=== PATIENT | female | born 1945 | race Caucasian/White ===

== ENCOUNTER 2021-10-18 07:15 | Day surgery (SDC) | payer MEDICARE, MEDICAID, SELFPAY ==
[2021-09-29 14:08] VITALS: BMI 24.7
--- NOTE | 2021-10-14 08:38 | MHC.SHP ---
Pre-Procedural Eval Section A Date of Service: 10/14/21 The patient is an INPATIENT: No Changes since office visit: No Cold of Flu in the past 2 weeks, No New Medical Problems, No Changes in Medication and No Patient answered all questions The History & Physical has been completed within 30 days and I have reviewed it.: Yes Section B Chief Complaint: Cataract Left Eye Allergies: Allergies Allergy/AdvReac Type Severity Reaction Status Date / Time asmanex twist haler Allergy Unknown Hives Uncoded 09/29/21 14:04 erythromycin Allergy Unknown Unknown Uncoded 09/29/21 14:04 prednisone Allergy Unknown Unknown Uncoded 09/29/21 14:04 Plan Diagnosis/Plan: Unchanged I have reviewed the history and physical and performed a pertinent physical examination on my patient. No changes have occurred unless specified.
--- NOTE | 2021-10-15 09:34 | HO.ANESPROP2 ---
Documented by User: Daly Leon NP 10/15/21 09:38 HPI - Anesthesia Eval Consult details Narrative: 76yo F for Left Cataract Extraction IOL Insertion PCP cleared No previous cataract on record Eliquis for afib PMFSH Past Medical History Medical History Anxiety Asthma Atrial fibrillation Autistic behavior Cataract History of asthma History of skin cancer Hypothyroidism Low back pain Osteoarthritis Surgical History Surgical History History of thyroid surgery Social History Social History (Updated 09/29/21 @ 14:06 by Lourdes Millan RN) Are you a primary congregational care pastor to a significant other at home: No Do you presently have visiting nurse or other home services: Yes (live-in 17/04 caregiver) Alcohol intake: never Patient Tobacco Use Status: Never used Tobacco Use of substances other than those prescribed or required for medical reasons: No Are you DNR?: No Advance Directives: No Advance Directives Information Provided: No Advance Directives on File: No Recently lost weight without trying: Yes How much weight loss: 2-13 pounds Eating poorly because of decreased appetite: Yes Nutrition screen score: 4 Meds Allergies Allergy/AdvReac Type Severity Reaction Status Date / Time asmanex twist haler Allergy Unknown Hives Uncoded 10/18/21 07:49 erythromycin Allergy Unknown Unknown Uncoded 10/18/21 07:49 prednisone Allergy Unknown Unknown Uncoded 10/18/21 07:49 Home Medications Medication Instructions Recorded Confirmed Last Taken Type Vitamin B-12 1,000 mcg PO DAILY 09/28/21 09/29/21 Unknown History albuterol sulfate 90 mcg/actuation 2 puff INHALATION Q4-6H PRN 09/28/21 09/29/21 Unknown History aerosol inhaler (Ventolin HFA) apixaban 5 mg tablet (Eliquis) 1 tab PO BID 09/28/21 09/28/21 10/18/21 06:30 History budesonide-formoterol HFA 160 2 puff INHALATION BID 09/28/21 09/29/21 Unknown History mcg-4.5 mcg/actuation aerosol inhaler cholecalciferol (vitamin D3) 25 1 cap PO DAILY 09/28/21 09/28/21 Unknown History mcg (1,000 unit) capsule (Vitamin D3) diltiazem HCl 360 mg 1 cap PO DAILY 09/28/21 09/28/21 10/18/21 06:30 History capsule,extended release 24 hr levothyroxine 125 mcg tablet 1 tab PO DAILY 09/28/21 09/28/21 10/18/21 06:30 History multivitamin 1 tab PO DAILY 09/28/21 09/28/21 Unknown History Exam Exam Date and Time: October 15, 2021 0934 Height,Weight and Vital Signs: Height 5 ft 4 in Weight 65.317 kg Assessment and Plan Assessment Anesthesia Assessment: Chart Reviewed Documented by User: Prince Hurt MD 10/18/21 08:06 [facility] Past Medical History Medical History Anxiety Asthma Atrial fibrillation Autistic behavior Cataract History of asthma History of skin cancer Hypothyroidism Low back pain Osteoarthritis Family History Family history of problems with anesthesia: No Surgical History Surgical History History of thyroid surgery History of Problems with Anesthesia: No Social History Social History (Updated 09/29/21 @ 14:06 by Lourdes Millan RN) Are you a primary congregational care pastor to a significant other at home: No Do you presently have visiting nurse or other home services: Yes (live-in 17/04 caregiver) Alcohol intake: never Patient Tobacco Use Status: Never used Tobacco Use of substances other than those prescribed or required for medical reasons: No Are you DNR?: No Advance Directives: No Advance Directives Information Provided: No Advance Directives on File: No Recently lost weight without trying: Yes How much weight loss: 2-13 pounds Eating poorly because of decreased appetite: Yes Nutrition screen score: 4 Meds Allergies Allergy/AdvReac Type Severity Reaction Status Date / Time asmanex twist haler Allergy Unknown Hives Uncoded 10/18/21 07:49 erythromycin Allergy Unknown Unknown Uncoded 10/18/21 07:49 prednisone Allergy Unknown Unknown Uncoded 10/18/21 07:49 Home Medications Medication Instructions Recorded Confirmed Last Taken Type Vitamin B-12 1,000 mcg PO DAILY 09/28/21 09/29/21 Unknown History albuterol sulfate 90 mcg/actuation 2 puff INHALATION Q4-6H PRN 09/28/21 09/29/21 Unknown History aerosol inhaler (Ventolin HFA) apixaban 5 mg tablet (Eliquis) 1 tab PO BID 09/28/21 09/28/21 10/18/21 06:30 History budesonide-formoterol HFA 160 2 puff INHALATION BID 09/28/21 09/29/21 Unknown History mcg-4.5 mcg/actuation aerosol inhaler cholecalciferol (vitamin D3) 25 1 cap PO DAILY 09/28/21 09/28/21 Unknown History mcg (1,000 unit) capsule (Vitamin D3) diltiazem HCl 360 mg 1 cap PO DAILY 09/28/21 09/28/21 10/18/21 06:30 History capsule,extended release 24 hr levothyroxine 125 mcg tablet 1 tab PO DAILY 09/28/21 09/28/21 10/18/21 06:30 History multivitamin 1 tab PO DAILY 09/28/21 09/28/21 Unknown History Exam Airway Mallampati Class: II TM Dist: >3cm Neck ROM: Full Loose/Missing/Broken Teeth: No Heart: irreg irreg s1s2 Lungs: CTA b/l Assessment and Plan Assessment Anesthesia Assessment: Anesthesia Plan Discussed Final Anesthetic Review Family History of Problems with Anesthesia: No History of Problems with Anesthesia: No NPO: Yes ASA Class: III Final Preanesthetic Review: No Changes in Pt Med Stat, Meds/Allgs Chart Reviewed, Consent Obtained/Reviewed and Anes Risks/Benef Reviewed Patient Risk: Intermediate Procedure Risk: Low Assessment/Block/Sedation in SS: Assess/Block/Sedation-SS Anesthetic Plan Anesthetic Plan: MAC: and Agree w/ Assess. and Plan Disposition: Standard PACU
[2021-10-18 07:52] VITALS: BP 164/74; PULSE 95; RESP 18; TEMP 37.2; O2SAT 97
[2021-10-18] MEDS: Tetracaine HCl/PF 0.5% Oph Sol 4 ML DROPS 1 DROP EYE-LEFT (08:09)
[2021-10-18] MEDS: Lactated Ringers 500 ML 50 ML IV (08:11)
[2021-10-18] MEDS: Tropicamide 1 % Ophth Sol 3 ML BTL 1 DROP EYE-LEFT ×3 (08:13→08:23)
[2021-10-18] MEDS: Phenylephrine HCL 2.5% Oph SoL 2 ML BOTTLE 1 DROP EYE-LEFT ×3 (08:16→08:26)
--- NOTE | 2021-10-18 08:50 | HO.PNOPHT ---
Ophthalmology Procedure Procedure Date of Service: 10/18/21 Ophthalmology Viscoelastic: Healjoss Gilt Dual Pack Pro Ophthalmology Lenses: TECNIS [id number] (22.5) Procedure Notes: PREOPERATIVE DIAGNOSIS: Decreased visual acuity left eye secondary to cataract POSTOPERATIVE DIAGNOSIS: Same PROCEDURE: Left cataract extraction with intraocular lens insertion SURGEON: Ganesh Sesay M.D. ANESTHESIA: Topical/MAC ESTIMATED BLOOD LOSS: None COMPLICATIONS: None After obtaining informed consent, the patient was brought to the operation room suite and placed in the supine position. After adequate sedation per anesthesia, topical drops of Tetracaine were given to the left eye. The eye was then prepped and draped in the usual sterile fashion. The operating room microscope was then positioned over the operative eye and a lid speculum placed. A paracentesis was created. Viscoelastic was then instilled into the anterior chamber. A three plane incision was then created temporally, utilizing a 2.85 mm keratome. Capsulotomy forceps were then utilized to create a circular tear capsulotomy. Hydrodissection and hydrodelineation were carried out until adequate mobilization of the nucleus occurred. Phacoemulsification was then utilized to remove the dense central nucleus followed by removal of the cortical material utilizing the automated aspiration irrigation unit. Viscoat elastic was instilled into the posterior capsular bag followed by placement of a posterior chamber intraocular lens without difficulty. The residual Viscoat elastic was then removed utilizing the automated IA machine. The wound was check and found to be watertight. The patient tolerated the procedure well and the lid speculum was removed. Intracameral injection of Vigamox 0.1 mL followed by a subtenon injection of Kenalog-40 0.2 mL were administered. The patient will be seen in the a.m.
[2021-10-18 09:10] VITALS: BP 133/62; PULSE 69; RESP 16; TEMP 37.3; O2SAT 97
== END 2021-10-18 09:20 | disposition home or self-care (01) ==
PROVIDERS: PCP Internal Medicine; Visit Provider Ophthalmology
PROC: (CPT 66985; principal; 2021-10-18 09:40)
DX: H25.12 Age-related nuclear cataract, left eye (principal); H52.4 Presbyopia; E03.9 Hypothyroidism, unspecified; I10 Essential (primary) hypertension; F41.1 Generalized anxiety disorder; F84.0 Autistic disorder; J45.909 Unspecified asthma, uncomplicated; I48.91 Unspecified atrial fibrillation; Z79.01 Long term (current) use of anticoagulants; Z79.899 Other long term (current) drug therapy; Z88.1 Allergy status to other antibiotic agents; Z88.8 Allergy status to other drugs, medicaments and biological substances
CPT/HCPCS: 66984; J2250; J3300; V2632

== ENCOUNTER 2021-10-25 08:17 | Day surgery (SDC) | payer MEDICARE, MEDICAID, SELFPAY ==
[2021-09-28 10:04] VITALS: BMI 24.7
--- NOTE | 2021-09-30 10:52 | MHC.SHP ---
Pre-Procedural Eval Section A Date of Service: 09/30/21 The patient is an INPATIENT: No Changes since office visit: No Cold of Flu in the past 2 weeks, No New Medical Problems, No Changes in Medication and No Patient answered all questions The History & Physical has been completed within 30 days and I have reviewed it.: Yes Section B Chief Complaint: Cataract Right Eye Allergies: Allergies Allergy/AdvReac Type Severity Reaction Status Date / Time asmanex twist haler Allergy Unknown Hives Uncoded 09/29/21 14:04 erythromycin Allergy Unknown Unknown Uncoded 09/29/21 14:04 prednisone Allergy Unknown Unknown Uncoded 09/29/21 14:04 Plan Diagnosis/Plan: Unchanged I have reviewed the history and physical and performed a pertinent physical examination on my patient. No changes have occurred unless specified.
--- NOTE | 2021-10-21 08:41 | MHC.SHP ---
Pre-Procedural Eval Section A Date of Service: 10/21/21 The patient is an INPATIENT: No Changes since office visit: No Cold of Flu in the past 2 weeks, No New Medical Problems, No Changes in Medication and No Patient answered all questions The History & Physical has been completed within 30 days and I have reviewed it.: Yes Section B Chief Complaint: Cataract Right Eye Allergies: Allergies Allergy/AdvReac Type Severity Reaction Status Date / Time asmanex twist haler Allergy Unknown Hives Uncoded 10/18/21 07:49 erythromycin Allergy Unknown Unknown Uncoded 10/18/21 07:49 prednisone Allergy Unknown Unknown Uncoded 10/18/21 07:49 Plan Diagnosis/Plan: Unchanged I have reviewed the history and physical and performed a pertinent physical examination on my patient. No changes have occurred unless specified.
--- NOTE | 2021-10-21 13:25 | P.CONAN_ITS ---
Documented by User: Daly Leon NP 10/21/21 13:26 HPI - Anesthesia Eval Consult details Narrative: 76yo F for Right Cataract Extraction IOL Insertion PCP cleared Left eye 10/18/21 with MAC: Midaz 2 Eliquis for afib PMFSH Past Medical History Medical History Anxiety Asthma Atrial fibrillation Autistic behavior Cataract History of asthma History of skin cancer Hypothyroidism Low back pain Osteoarthritis Family History Family history of problems with anesthesia: No Surgical History Surgical History History of thyroid surgery History of Problems with Anesthesia: No Social History Social History (Updated 09/29/21 @ 14:06 by Lourdes Millan RN) Are you a primary health care legal assistant to a significant other at home: No Do you presently have visiting nurse or other home services: Yes (live-in 17/04 caregiver) Alcohol intake: never Patient Tobacco Use Status: Never used Tobacco Are you DNR?: No Advance Directives: No Advance Directives Information Provided: Yes Advance Directives on File: No Recently lost weight without trying: Yes How much weight loss: 2-13 pounds Eating poorly because of decreased appetite: Yes Nutrition screen score: 4 Meds Allergies Allergy/AdvReac Type Severity Reaction Status Date / Time asmanex twist haler Allergy Unknown Hives Uncoded 10/25/21 09:35 erythromycin Allergy Unknown Unknown Uncoded 10/25/21 09:35 prednisone Allergy Unknown Unknown Uncoded 10/25/21 09:35 Home Medications Medication Instructions Recorded Confirmed Last Taken Type Vitamin B-12 1,000 mcg PO 09/28/21 09/29/21 Unknown History DAILY albuterol 2 puff 09/28/21 09/29/21 Unknown History sulfate 90 INHALATION mcg/actuation Q4-6H PRN aerosol inhaler (Ventolin HFA) apixaban 5 mg 1 tab PO BID 09/28/21 09/28/21 10/25/21 07:00 History tablet (Eliquis) budesonide-form 2 puff 09/28/21 09/29/21 Unknown History oterol HFA 160 INHALATION BID mcg-4.5 mcg/actuation aerosol inhaler cholecalciferol 1 cap PO DAILY 09/28/21 09/28/21 Unknown History (vitamin D3) 25 mcg (1,000 unit) capsule (Vitamin D3) diltiazem HCl 1 cap PO DAILY 09/28/21 09/28/21 10/25/21 07:00 History 360 mg capsule,extende d release 24 hr levothyroxine 1 tab PO DAILY 09/28/21 09/28/21 10/25/21 07:00 History 125 mcg tablet multivitamin 1 tab PO DAILY 09/28/21 09/28/21 Unknown History Exam Exam Date and Time: October 21, 2021 1325 Height,Weight and Vital Signs: Height 5 ft 4 in Weight 65.317 kg Assessment and Plan Assessment Anesthesia Assessment: Chart Reviewed Final Anesthetic Review Family History of Problems with Anesthesia: No History of Problems with Anesthesia: No Documented by User: Prince Hurt MD 10/25/21 09:43 [facility] Past Medical History Medical History Anxiety Asthma Atrial fibrillation Autistic behavior Cataract History of asthma History of skin cancer Hypothyroidism Low back pain Osteoarthritis Surgical History Surgical History History of thyroid surgery Social History Social History (Updated 09/29/21 @ 14:06 by Lourdes Millan RN) Are you a primary health care legal assistant to a significant other at home: No Do you presently have visiting nurse or other home services: Yes (live-in 17/04 caregiver) Alcohol intake: never Patient Tobacco Use Status: Never used Tobacco Are you DNR?: No Advance Directives: No Advance Directives Information Provided: Yes Advance Directives on File: No Recently lost weight without trying: Yes How much weight loss: 2-13 pounds Eating poorly because of decreased appetite: Yes Nutrition screen score: 4 Meds Allergies Allergy/AdvReac Type Severity Reaction Status Date / Time asmanex twist haler Allergy Unknown Hives Uncoded 10/25/21 09:35 erythromycin Allergy Unknown Unknown Uncoded 10/25/21 09:35 prednisone Allergy Unknown Unknown Uncoded 10/25/21 09:35 Home Medications Medication Instructions Recorded Confirmed Last Taken Type Vitamin B-12 1,000 mcg PO 09/28/21 09/29/21 Unknown History DAILY albuterol 2 puff 09/28/21 09/29/21 Unknown History sulfate 90 INHALATION mcg/actuation Q4-6H PRN aerosol inhaler (Ventolin HFA) apixaban 5 mg 1 tab PO BID 09/28/21 09/28/21 10/25/21 07:00 History tablet (Eliquis) budesonide-form 2 puff 09/28/21 09/29/21 Unknown History oterol HFA 160 INHALATION BID mcg-4.5 mcg/actuation aerosol inhaler cholecalciferol 1 cap PO DAILY 09/28/21 09/28/21 Unknown History (vitamin D3) 25 mcg (1,000 unit) capsule (Vitamin D3) diltiazem HCl 1 cap PO DAILY 09/28/21 09/28/21 10/25/21 07:00 History 360 mg capsule,extende d release 24 hr levothyroxine 1 tab PO DAILY 09/28/21 09/28/21 10/25/21 07:00 History 125 mcg tablet multivitamin 1 tab PO DAILY 09/28/21 09/28/21 Unknown History Exam Airway Mallampati Class: II TM Dist: >3cm Neck ROM: Full Loose/Missing/Broken Teeth: No Heart: rrr+s1s2 Lungs: cta b/l Assessment and Plan Assessment Anesthesia Assessment: Anesthesia Plan Discussed Final Anesthetic Review NPO: Yes ASA Class: III Final Preanesthetic Review: No Changes in Pt Med Stat, Meds/Allgs Chart Reviewed, Consent Obtained/Reviewed and Anes Risks/Benef Reviewed Patient Risk: Intermediate Procedure Risk: Low Assessment/Block/Sedation in SS: Assess/Block/Sedation-SS Anesthetic Plan Anesthetic Plan: MAC: and Agree w/ Assess. and Plan Disposition: Standard PACU
[2021-10-25] MEDS: Tetracaine HCl/PF 0.5% Oph Sol 4 ML DROPS 1 DROP EYE-RIGHT (09:40)
[2021-10-25] MEDS: Tropicamide 1 % Ophth Sol 3 ML BTL 1 DROP EYE-RIGHT ×3 (09:41→09:53)
--- NOTE | 2021-10-25 09:43 | HO.ANESPROP2 ---
[facility] Past Medical History Medical History Anxiety Asthma Atrial fibrillation Autistic behavior Cataract History of asthma History of skin cancer Hypothyroidism Low back pain Osteoarthritis Family History Family history of problems with anesthesia: No Surgical History Surgical History History of thyroid surgery History of Problems with Anesthesia: No Social History Social History (Updated 09/29/21 @ 14:06 by Lourdes Millan RN) Are you a primary spiritual care coordinator to a significant other at home: No Do you presently have visiting nurse or other home services: Yes (live-in 17/04 caregiver) Alcohol intake: never Patient Tobacco Use Status: Never used Tobacco Are you DNR?: No Advance Directives: No Advance Directives Information Provided: Yes Advance Directives on File: No Recently lost weight without trying: Yes How much weight loss: 2-13 pounds Eating poorly because of decreased appetite: Yes Nutrition screen score: 4 Meds Allergies Allergy/AdvReac Type Severity Reaction Status Date / Time asmanex twist haler Allergy Unknown Hives Uncoded 10/25/21 09:35 erythromycin Allergy Unknown Unknown Uncoded 10/25/21 09:35 prednisone Allergy Unknown Unknown Uncoded 10/25/21 09:35 Active Medications: Current Medications Albuterol Sulfate (Albuterol Sulfate (0.083%) 2.5 Mg/3 Ml Vial.Neb) 2.5 mg INHALE ONCE PRN PRN Reason: Shortness of Breath/Wheezing Lactated Ringer's (Lr) 500 mls @ 50 mls/hr IV .Q10H DOYLE Stop: 10/25/21 18:59 Povidone Iodine (Povidone Iodine 5 % Ophth Soln 30 Ml Bottle) 1 appl EYE-RIGHT PREOP PRN PRN Reason: Pre-Op Surgical Implant Prophy Home Medications Medication Instructions Recorded Confirmed Last Taken Type Vitamin B-12 1,000 mcg PO DAILY 09/28/21 09/29/21 Unknown History albuterol sulfate 90 mcg/actuation 2 puff INHALATION Q4-6H PRN 09/28/21 09/29/21 Unknown History aerosol inhaler (Ventolin HFA) apixaban 5 mg tablet (Eliquis) 1 tab PO BID 09/28/21 09/28/21 10/25/21 07:00 History budesonide-formoterol HFA 160 2 puff INHALATION BID 09/28/21 09/29/21 Unknown History mcg-4.5 mcg/actuation aerosol inhaler cholecalciferol (vitamin D3) 25 1 cap PO DAILY 09/28/21 09/28/21 Unknown History mcg (1,000 unit) capsule (Vitamin D3) diltiazem HCl 360 mg 1 cap PO DAILY 09/28/21 09/28/21 10/25/21 07:00 History capsule,extended release 24 hr levothyroxine 125 mcg tablet 1 tab PO DAILY 09/28/21 09/28/21 10/25/21 07:00 History multivitamin 1 tab PO DAILY 09/28/21 09/28/21 Unknown History Exam Exam Date and Time: October 25, 2021 0943 Height,Weight and Vital Signs: Height 5 ft 4 in Weight 65.317 kg Airway Mallampati Class: II TM Dist: >3cm Neck ROM: Full Assessment and Plan Assessment Anesthesia Assessment: Anesthesia Plan Discussed Final Anesthetic Review Family History of Problems with Anesthesia: No History of Problems with Anesthesia: No NPO: Yes ASA Class: II Final Preanesthetic Review: No Changes in Pt Med Stat, Meds/Allgs Chart Reviewed, Consent Obtained/Reviewed and Anes Risks/Benef Reviewed Patient Risk: Intermediate Procedure Risk: Low Anesthetic Plan Anesthetic Plan: MAC: Disposition: Standard PACU
[2021-10-25 09:45] VITALS: BP 148/54; PULSE 65; RESP 16; TEMP 36.4; O2SAT 98
[2021-10-25] MEDS: Phenylephrine HCL 2.5% Oph SoL 2 ML BOTTLE 1 DROP EYE-RIGHT ×3 (09:45→09:57)
[2021-10-25] MEDS: Lactated Ringers 500 ML 50 ML IV (09:47)
--- NOTE | 2021-10-25 10:30 | HO.PNOPHT ---
Ophthalmology Procedure Procedure Date of Service: 10/25/21 Ophthalmology Viscoelastic: Healjoss Gilt Dual Pack Pro Ophthalmology Lenses: TECNIS [id number] (22.5) Procedure Notes: PREOPERATIVE DIAGNOSIS: Decreased visual acuity right eye secondary to cataract POSTOPERATIVE DIAGNOSIS: Same PROCEDURE: Right cataract extraction with intraocular lens insertion SURGEON: Ganesh Sesay M.D. ANESTHESIA: Topical/MAC ESTIMATED BLOOD LOSS: None COMPLICATIONS: None After obtaining informed consent, the patient was brought to the operating room suite and placed in the supine position. After adequate sedation per anesthesia, topical drops of Tetracaine were given to the right eye. The eye was then prepped and draped in the usual sterile fashion. The operating room microscope was then positioned over the operative eye and a lid speculum placed. A paracentesis was created. Viscoelastic was then instilled into the anterior chamber. A three plane incision was then created temporally, utilizing a 2.85 mm keratome. Capsulotomy forceps were then utilized to create a circular tear capsulotomy. Hydrodissection and hydrodelineation were carried out until adequate mobilization of the nucleus occurred. Phacoemulsification was then utilized to remove the dense central nucleus followed by removal of the cortical material utilizing the automated aspiration irrigation unit. Viscoelastic was instilled into the posterior capsular bag followed by placement of a posterior chamber intraocular lens without difficulty. The residual Viscoelastic was then removed utilizing the automated IA machine. The wound was checked and found to be watertight. The patient tolerated the procedure well and the lid speculum was removed. Intracameral injection of Vigamox 0.1 mL followed by a subtenon injection of Kenalog-40 0.2 mL were administered. The patient will be seen in the a.m.
[2021-10-25 11:00] VITALS: BP 139/78; PULSE 62; RESP 12; TEMP 37; O2SAT 99
== END 2021-10-25 11:10 | disposition home or self-care (01) ==
PROVIDERS: PCP Internal Medicine; Visit Provider Ophthalmology
PROC: (CPT 66985; principal; 2021-10-25 10:40)
DX: H25.11 Age-related nuclear cataract, right eye (principal); H54.7 Unspecified visual loss; E03.9 Hypothyroidism, unspecified; I48.91 Unspecified atrial fibrillation; I10 Essential (primary) hypertension; J45.909 Unspecified asthma, uncomplicated; F84.0 Autistic disorder; F41.1 Generalized anxiety disorder; Z79.01 Long term (current) use of anticoagulants; Z79.51 Long term (current) use of inhaled steroids; Z79.899 Other long term (current) drug therapy; Z88.1 Allergy status to other antibiotic agents; Z88.8 Allergy status to other drugs, medicaments and biological substances
CPT/HCPCS: 66984; J2250; J3010; J3300; V2632

== ENCOUNTER 2024-05-20 14:42 | Outpatient (REF) | payer MEDICARE, MEDICAID, SELFPAY ==
--- NOTE | 2024-05-20 16:10 | MHC.AU.MED ---
Medical Clearance for Hearing Instrumentation Date: 05/20/24 Patient Name: Riana Tan Date of : 1945 Primary Care Provider: Markell Mccann MD We have seen your patient on 05/20/24 and have determined that they are a candidate for amplification (See accompanying report). Specifically, they would benefit from: Hearing aid use in both ears There is a statute that addresses Medical Evaluation Requirements prior to fitting a patient with a hearing aid. According to [place] statute 265 CMR:6.03(1), (a) General. Except as provided in 265 CMR 6.03(1)(b), a newborn hearing screener shall not sell a hearing aid unless the prospective user has presented to the newborn hearing screener a written statement signed by a licensed physician that states that the patient's hearing loss has been medically evaluated and the patient may be considered a candidate for a hearing aid. The medical evaluation must have taken place within the preceding six months. Please note: Due to the [place] Statute referenced above, we cannot accept a signature other than that of a licensed physician. PROPOSAL MANAGER WRITER and PA signatures cannot be accepted. I am in agreement with the above recommendation. There is no medical contraindication for hearing instrumentation. Physician Signature Date Physician Name (Printed)
--- NOTE | 2024-05-21 08:10 | MHC.AU.HA1 ---
Hearing Aid Evaluation Date of Visit: 05/20/24 Plug Wirer Used: Historical Information: Description of Hearing: Right Ear: Moderate sloping to severe sensorineural hearing loss; Left Ear: Mild sloping to moderately-severe sensorineural hearing loss Summary: Accompanied by niece, Quiana. Hearing aids recommended in 2020; however, never followed through at that time. Also previously evaluated at [facility], recommended MRI due to asymmetry but Riana refused due to her nervousness. Now noticing increasing hearing difficulties, television volume elevated. Ready to pursue amplification to help ease some communication difficulties. Opted for rechargeable ITC. Impressions taken, bilaterally, without incident (in hold drawer, waiting for medical clearance). Hearing Aid Prescription: Based on the individual?s shared listening needs, communication environments, dexterity, desire for connectivity, and personal preferences, the following prescription for amplification has been made: Right ear: Make, Model, Color: Pantea AI 1600 ITC-R Color: [place] Battery Size: Rechargeable Left ear: Left ear prescription to be same as Right Hearing Aid above: Make, Model, Color: Pantea AI 1600 ITC-R Color: [place] Battery Size: Rechargeable Accessories/Assistive Technology: Security Solutions Engineer Plan of Care: Patient wishes to purchase hearing aids as prescribed Action Taken/Action Needed: Medical Clearance to be requested from PCP/ENT. Hearing Instrument Fitting to be scheduled when materials arrive Primary Diagnosis: H90.3 Bilateral Sensorineural Hearing Loss Signature: Provider: Adonis Cruz, [facility]
== END 2024-05-20 14:43 | disposition home or self-care (01) ==
LOC: HO.SH 14:42
PROVIDERS: Visit Provider Internal Medicine
DX: Z01.118 Encounter for examination of ears and hearing with other abnormal findings (principal); Z46.1 Encounter for fitting and adjustment of hearing aid; H90.3 Sensorineural hearing loss, bilateral
CPT/HCPCS: 92557; 92567; 92591; V5275

== ENCOUNTER 2024-06-25 12:59 | Outpatient (REF) | payer MEDICARE, MEDICAID, SELFPAY ==
--- NOTE | 2024-06-25 13:55 | MHC.AU.HA2 ---
Hearing Instrument Fitting- Adult- Binaural Date of Visit: 06/25/24 Hearing Instruments Dispensed: Right Ear: Darío, Model, Color, Serial Number: Mandy CARRERO 1600 ITC-R SN: [id number] Color: [place] Inspector Mechanical Repair Warranty: 06/28/2027 Inspector Mechanical Loss and Damage Warranty: 06/28/2027 [facility] Service Plan: 06/25/2025 Battery Size: Rechargeable Type of Wax Guard: HearClear Left Ear: Model Darío, Color, Serial Number: Mandy CARRERO 1600 ITC-R SN: [id number] Color: [place] Inspector Mechanical Repair Warranty: 06/28/2027 Inspector Mechanical Loss and Damage Warranty: 06/28/2027 [facility] Service Plan: 06/25/2025 Battery Size: Rechargeable Type of Wax Guard: HearClear Accessories/Assistive Technology: [employer] Custom Litigation Specialist SN: [id number] Summary of Fitting: Accompanied by Quiana verma. Ran feedback analyzer and real ear measures. Comfortable at real ear settings. Discussed care, use, and rechargeability including manually turning on/off, cleaning, changing wax guards. VC disabled. Practiced insertion/removal. Some difficulty inserting but better with practice. Niece able to help. Explained importance of daily, consistent use. Riana motivated to wear and acclimate to hearing aids. No interest in [employer] at this time. Recommendations: A hearing instrument follow-up was scheduled. Diagnosis Code(s): Primary Diagnosis: H90.3 Bilateral Sensorineural Hearing Loss Signature: Provider: Adonis Cruz, [facility]
== END 2024-06-25 13:00 | disposition home or self-care (01) ==
LOC: HO.HAP 12:59
PROVIDERS: Visit Provider Internal Medicine
DX: Z46.1 Encounter for fitting and adjustment of hearing aid (principal); H90.3 Sensorineural hearing loss, bilateral
CPT/HCPCS: V5011; V5020; V5160; V5259

== ENCOUNTER 2024-07-09 14:33 | Outpatient (REF) | payer MEDICARE, MEDICAID, SELFPAY | END 2024-07-09 14:34 | disposition home or self-care (01) | LOC: HO.HAP 14:33 | PROVIDERS: Visit Provider Internal Medicine | DX: Z13.89 Encounter for screening for other disorder (principal) ==